=== PATIENT | female | born 1955 | race Caucasian/White ===

== ENCOUNTER 2016-06-21 10:25 | Outpatient (CLI) | payer MEDICAID | END 2016-06-21 10:26 | disposition home or self-care (01) | DX: I25.10 Atherosclerotic heart disease of native coronary artery without angina pectoris (principal); I10 Essential (primary) hypertension ==

== ENCOUNTER 2017-06-14 09:26 | Outpatient (CLI) | payer OTHER ==
[2017-06-14 18:31] LABS: BILIRUBIN,URINE NEGATIVE (NEGATIVE); GLUCOSE, URINE (UA) NEGATIVE (NEGATIVE); KETONES,URINE (UA) NEGATIVE (NEGATIVE); LEUKOCYTE ESTERASE, URINE NEGATIVE (NEGATIVE); NITRITE,URINE NEGATIVE (NEGATIVE); OCCULT BLOOD,URINE NEGATIVE (NEGATIVE); PROTEIN,URINE NEGATIVE (NEGATIVE); UROBILINOGEN,URINE 0.2 (NORMAL) E.U./dL (NORMAL)
[2017-06-14 18:36] LABS: CLARITY,URINE HAZY (CLEAR)
[2017-06-14 18:38] LABS: BACTERIA,URINE Rare /HPF (None Seen); RBC,URINE None Seen /HPF (0-5); SQUAMOUS EPITHELIAL CELL,UR MOD Squamous (<= Few)
[2017-06-14 18:55] LABS: ALBUMIN 4.3 g/dL (3.2-5.5); ALBUMIN/GLOBULIN RATIO 1.3 (1.0-2.2); ALKALINE PHOSPHATASE 73 IU/L (42-121); ALT ALANINE AMINOTRANSFERASE 15 IU/L (10-60); AST ASPARTATE AMINOTRANSFERASE 20 IU/L (10-42); BUN - BLOOD UREA NITROGEN 17 mg/dL (6-20); CALCIUM 9.5 mg/dL (8.5-10.3); CARBON DIOXIDE - CO2 26 mmol/L (21-32); CHLORIDE 102 mmol/L (101-111); CHOL/HDL RATIO 5.7 (<4.4); CHOLESTEROL 227 mg/dL; CREATININE 0.7 mg/dL (0.4-1.0); GFR - MDRD 85 (>89); GLUCOSE 93 mg/dL (70-100); HDL CHOLESTEROL 40 mg/dL; LDL CHOLESTEROL,CALCULATED 145 mg/dL; LDL/HDL RATIO 3.6 (<4.4); SODIUM 136 mmol/L (135-145); TOTAL PROTEIN 7.6 g/dL (6.7-8.2); VLDL CHOLESTEROL 42 mg/dL
[2017-06-14 19:04] LABS: BASOPHILS # (AUTO) 0.1 10^3/uL (0.0-0.1); BASOPHILS % (AUTO) 1.2 %; EOSINOPHILS # (AUTO) 0.3 10^3/uL (0.0-0.7); EOSINOPHILS % (AUTO) 4.2 %; HGB - HEMOGLOBIN 14.4 g/dL (12.0-16.0); LYMPHOCYTES % (AUTO) 15.5 %; MEAN CORPUSCULAR HEMOGLOBIN 31.7 pg (27.0-31.0); MEAN CORPUSCULAR HGB CONC 33.1 g/dL (32.0-36.0); MEAN CORPUSCULAR VOLUME 95.9 fL (81.0-99.0); MEAN PLATELET VOLUME 8.7 fL (7.9-10.8); MONOCYTES # (AUTO) 0.4 10^3/uL (0.0-1.0); NEUTROPHILS # (AUTO) 4.7 10^3/uL (1.5-6.6); NEUTROPHILS % (AUTO) 73.1 %; PLT - PLATELET COUNT 333 10^3/uL (130-450); RED BLOOD COUNT 4.54 10^6/uL (4.20-5.40); WHITE BLOOD COUNT 6.5 x10^3/uL (4.8-10.8)
== END 2017-06-14 09:27 | disposition home or self-care (01) ==
LOC: LAB.F 09:26
PROVIDERS: ATTEND Nurse Practitioner Family
DX: I10 Essential (primary) hypertension (principal); E78.5 Hyperlipidemia, unspecified; R41.3 Other amnesia
CPT/HCPCS: 36415; 80053; 80061; 81001; 84443; 85025; 87086

== ENCOUNTER 2017-06-28 08:37 | Inpatient (IN) | payer OTHER ==
--- NOTE | 2017-06-28 09:01 | ED Physician Documentation ---
PD HPI DYSPNEA - Stated complaint Stated Complaint: CONGESTION,FEVER - Chief complaint Chief Complaint: General - History obtained from History obtained from: Patient, Friend - History of Present Illness Timing - onset: How many days ago (3 or 4 days.) Timing - details: Gradual onset Worsened by: Coughing Associated symptoms: Fever, Cough Similar symptoms before: Has not had sx before - Additional information Additional information: The patient is a 62-year-old female who presents with dyspnea that has been progressing over the past 3 or 4 days. She reports congestion and has productive cough. She had a fever today. She reports few episodes of diarrhea over the past 2 days. She denies abdominal pain, nausea, or vomiting. She denies chest pain, headache, or dysuria. She denies history of similar symptoms in the past. Past medical history is significant for cardiovascular disease, and thinks she may have undergone coronary stent placement, but is uncertain. She has history of cerebrovascular dementia. She has no primary physician. She has a long history of cigarette smoking. Review of Systems Constitutional: reports: Fever, Fatigue Nose: reports: Congestion Throat: denies: Sore throat Cardiac: denies: Chest pain / pressure Respiratory: reports: Dyspnea, Cough GI: reports: Diarrhea. denies: Abdominal Pain, Nausea, Vomiting : denies: Dysuria Skin: denies: Rash Musculoskeletal: denies: Back pain, Extremity pain, Extremity swelling Neurologic: reports: Generalized weakness. denies: Focal weakness, Numbness, Headache PD PAST MEDICAL HISTORY - Past Medical History Cardiovascular: Coronary artery disease, Peripheral Vascular Disease Respiratory: COPD Neuro: Dementia Endocrine/Autoimmune: None - Present Medications Home Medications: Ambulatory Orders Medication Instructions Recorded Confirmed Aspirin [Aspirin EC] 81 mg PO DAILY 06/28/17 06/28/17 Atorvastatin Calcium [Lipitor] 80 mg PO QPM 06/28/17 06/28/17 Clopidogrel [Plavix] 75 mg PO DAILY 06/28/17 06/28/17 Lisinopril/Hydrochlorothiazide 1 each PO DAILY 06/28/17 06/28/17 [Lisinopril-Hctz 20-12.5 mg Tab] - Allergies Allergies/Adverse Reactions: Allergies Allergy/AdvReac Type Severity Reaction Status Date / Time No Known Drug Allergies Allergy Verified 06/28/17 08:48 - Social History Does the pt smoke?: Yes Smoking Status: Current every day smoker PD ED PE NORMAL - Vitals Vital signs reviewed: Yes (Tachycardic and tachypneic.) - General General: Alert and oriented X 3, Other (Frail appearing with coarse sounding cough, and appears acutely ill with dusky discoloration.) - HEENT HEENT: Atraumatic, PERRL, EOMI, Moist mucous membranes, Pharynx benign - Neck Neck: Supple, no meningeal sign, No adenopathy, No JVD - Cardiac Cardiac: No murmur, Other (Rapid rate, regular rhythm.) - Respiratory Respiratory: Other (Coarse breath sounds bilaterally, more on the right than the left.) - Abdomen Abdomen: Soft, Non tender - Back Back: No CVA TTP - Derm Derm: No rash - Extremities Extremities: No edema, No calf tenderness / cord, Other (Dusky appearing distal extremities.) - Neuro Neuro: Alert and oriented X 3, No motor deficit, Other (Drowsy, but alert and oriented, consistent with fatigue.) Eye Opening: Spontaneous Motor: Obeys Commands Verbal: Oriented GCS Score: 15 Results - Vitals Vitals: Vital Signs - 24 hr 06/28/17 06/28/17 06/28/17 08:44 09:53 10:10 Temperature 36.7 C Heart Rate 118 H 114 H 112 H Respiratory 30 H 34 H 31 H Rate Blood Pressure 131/86 H 143/111 H 84/62 L O2 Saturation 100 91 L 89 L 06/28/17 06/28/17 10:20 10:47 Temperature Heart Rate 109 H 109 H Respiratory 108 H 28 H Rate Blood Pressure 84/62 L 93/64 O2 Saturation 88 L 90 L Oxygen O2 Source high flow Oxygen Flow Rate 6 - EKG (time done) 09:23 Rate: Rate (enter#) (114) Rhythm: Sinus tachycardia Stites: LAD Intervals: RBBB, LBBB QRS: LVH Ischemia: Q waves (in inferior leads II and aVF.) Other comments: Other comments (and flattening in I, aVL, and V2.) Compare to prior EKG: Old EKG unavailable Computer interpretation: Agree with computer - Labs Labs: Laboratory Tests 06/28/17 06/28/17 06/28/17 09:10 09:40 09:47 WBC RBC Hgb Hct MCV MCH MCHC RDW Plt Count MPV Neut # Lymph # Tillman # Eos # Baso # Absolute Nucleated RBC Nucleated RBC % Manual Slide Review Platelet Estimate RBC Morph Micro Appear Bld Gas Analysis Time 0952 Sample Site RIGHT FEMORAL ABG pH 7.25 L ABG pCO2 30 L ABG pO2 42 L* ABG HCO3 12.9 L ABG Total CO2 13.8 L ABG O2 Saturation 73 L* ABG Oximetry Spot Check 75 ABG Base Excess -12.9 L Tyler Test NOT APPLICABLE VBG pH 7.248 L VBG pCO2 30.2 L VBG pO2 41.5 VBG HCO3 12.9 L VBG Total CO2 13.8 L VBG O2 Saturation 72.8 VBG Base Excess -12.9 L O2 Delivery Device NASAL CANNULA O2 Liters/Min 3.50 Sodium Potassium Chloride Carbon Dioxide Anion Gap BUN Creatinine Estimated GFR (MDRD) Glucose Lactic Acid Calcium Total Bilirubin AST ALT Alkaline Phosphatase Troponin I B-Natriuretic Peptide Total Protein Albumin Globulin Albumin/Globulin Ratio Lipase Urine Color DARK YELLOW Urine Clarity CLEAR Urine pH 6.0 Ur Specific Supply >=1.030 H Urine Protein 30 H Urine Glucose (UA) NEGATIVE Urine Ketones TRACE Urine Occult Blood NEGATIVE Urine Nitrite NEGATIVE Urine Bilirubin NEGATIVE Urine Urobilinogen 0.2 (NORMAL) Ur Leukocyte Esterase NEGATIVE Urine RBC 0-5 Urine WBC 0-3 Ur Squamous Epith Cells RARE Squamous Urine Bacteria None Seen Urine Casts 0-2 Hyaline Casts Urine Mucus Marked Strands Ur Microscopic Review INDICATED Urine Culture Comments NOT INDICATED Urine Opiates Screen NEGATIVE Ur Oxycodone Screen NEGATIVE Urine Methadone Screen NEGATIVE Ur Propoxyphene Screen NEGATIVE Ur Barbiturates Screen NEGATIVE Ur Tricyclics Screen NEGATIVE Ur Phencyclidine Scrn NEGATIVE Ur Amphetamine Screen NEGATIVE U Methamphetamines Scrn NEGATIVE U Benzodiazepines Scrn NEGATIVE Urine Cocaine Screen NEGATIVE U Cannabinoids Screen NEGATIVE 06/28/17 06/28/17 06/28/17 09:51 09:51 09:51 WBC 17.1 H RBC 4.46 Hgb 14.0 Hct 42.5 MCV 95.3 MCH 31.5 H MCHC 33.0 RDW 13.1 Plt Count 188 MPV 9.0 Neut # 15.3 H Lymph # 0.4 L Tillman # 1.4 H Eos # 0.0 Baso # 0.0 Absolute Nucleated RBC 0.02 Nucleated RBC % 0.1 Manual Slide Review Indicated Platelet Estimate NORMAL (130-450,000) RBC Morph Micro Appear 1+ POLYCHROMASIA Bld Gas Analysis Time Sample Site ABG pH ABG pCO2 ABG pO2 ABG HCO3 ABG Total CO2 ABG O2 Saturation ABG Oximetry Spot Check ABG Base Excess Tyler Test VBG pH VBG pCO2 VBG pO2 VBG HCO3 VBG Total CO2 VBG O2 Saturation VBG Base Excess O2 Delivery Device O2 Liters/Min Sodium 130 L Potassium 3.7 Chloride 99 L Carbon Dioxide 12 L* Anion Gap 19.0 H BUN 35 H Creatinine 1.5 H Estimated GFR (MDRD) 35 L Glucose 162 H Lactic Acid Calcium 7.8 L Total Bilirubin 0.8 AST 368 H ALT 170 H Alkaline Phosphatase 104 Troponin I 1.02 H* B-Natriuretic Peptide Total Protein 6.2 L Albumin 2.7 L Globulin 3.5 Albumin/Globulin Ratio 0.8 L Lipase < 10 L Urine Color Urine Clarity Urine pH Ur Specific Supply Urine Protein Urine Glucose (UA) Urine Ketones Urine Occult Blood Urine Nitrite Urine Bilirubin Urine Urobilinogen Ur Leukocyte Esterase Urine RBC Urine WBC Ur Squamous Epith Cells Urine Bacteria Urine Casts Urine Mucus Ur Microscopic Review Urine Culture Comments Urine Opiates Screen Ur Oxycodone Screen Urine Methadone Screen Ur Propoxyphene Screen Ur Barbiturates Screen Ur Tricyclics Screen Ur Phencyclidine Scrn Ur Amphetamine Screen U Methamphetamines Scrn U Benzodiazepines Scrn Urine Cocaine Screen U Cannabinoids Screen 06/28/17 06/28/17 09:51 09:51 WBC RBC Hgb Hct MCV MCH MCHC RDW Plt Count MPV Neut # Lymph # Tillman # Eos # Baso # Absolute Nucleated RBC Nucleated RBC % Manual Slide Review Platelet Estimate RBC Morph Micro Appear Bld Gas Analysis Time Sample Site ABG pH ABG pCO2 ABG pO2 ABG HCO3 ABG Total CO2 ABG O2 Saturation ABG Oximetry Spot Check ABG Base Excess Tyler Test VBG pH VBG pCO2 VBG pO2 VBG HCO3 VBG Total CO2 VBG O2 Saturation VBG Base Excess O2 Delivery Device O2 Liters/Min Sodium Potassium Chloride Carbon Dioxide Anion Gap BUN Creatinine Estimated GFR (MDRD) Glucose Lactic Acid 7.4 H* Calcium Total Bilirubin AST ALT Alkaline Phosphatase Troponin I B-Natriuretic Peptide 558 H Total Protein Albumin Globulin Albumin/Globulin Ratio Lipase Urine Color Urine Clarity Urine pH Ur Specific Supply Urine Protein Urine Glucose (UA) Urine Ketones Urine Occult Blood Urine Nitrite Urine Bilirubin Urine Urobilinogen Ur Leukocyte Esterase Urine RBC Urine WBC Ur Squamous Epith Cells Urine Bacteria Urine Casts Urine Mucus Ur Microscopic Review Urine Culture Comments Urine Opiates Screen Ur Oxycodone Screen Urine Methadone Screen Ur Propoxyphene Screen Ur Barbiturates Screen Ur Tricyclics Screen Ur Phencyclidine Scrn Ur Amphetamine Screen U Methamphetamines Scrn U Benzodiazepines Scrn Urine Cocaine Screen U Cannabinoids Screen - Rads (name of study) 1-view CXR Radiology: Prelim report reviewed, EMP read contemporaneously, See rad report ( Extensive bilateral lung opacities are worrisome for congestive heart failure and potential pneumonia.) PD MEDICAL DECISION MAKING - ED course Complexity details: reviewed results, re-evaluated patient, considered differential, d/w patient, d/w family, d/w forestry consultant ED course: The patient's presentation is most consistent with bilateral pneumonia with sepsis. She presents with respiratory failure with combined metabolic and respiratory acidosis, with pH of 7.248 on venous blood gas. Initial pulse oximetry is 79% on room air. It improves to 93% on 40% oxygen by high flow nasal cannula. She was not able to tolerate facemask or BiPAP. Lactate level is elevated at 7.4, consistent with sepsis. Blood cultures 2 were drawn and are pending. Safety Lead and emergency nurses were unable to draw blood initially, so labs were drawn by myself from the right femoral vein. Further laboratory abnormalities revealed a low sodium of 130, low serum bicarb at 12, elevated BUN and creatinine at 35 and 1.5, elevated troponin of 1.02, and elevated BNP of 558. Further treatment in the emergency department included administration of ceftriaxone 1 g IV, and azithromycin 500 mg IV, after blood cultures were drawn. Normal saline 1 L was administered IV. Townsend catheter was inserted, and adequate urine output was observed. I discussed her condition with Dr. Morales who evaluated her in the emergency department and initially admitted her to the ICU, but promptly transferred her to an acute care facility. - Critical Care Time(min): 60 Time Includes: Direct patient care, Reassess patient, Document care, Coordinate care Data interpretation: Labs, Pulse ox, ABG, CXR Procedures included in critical care time: Blood draw Procedures excluded from critical care time: EKG Departure - Departure Disposition: 66 [facility] DC/Xfer Clinical Impression: Metabolic acidosis with respiratory acidosis, Hyponatremia, Non-ST elevation SC (NSTEMI) Respiratory failure Qualifiers: Chronicity: acute Respiratory failure complication: hypoxia and hypercapnia Qualified Code(s): J96.01 - Acute respiratory failure with hypoxia Pneumonia Qualifiers: Pneumonia type: due to unspecified organism Laterality: bilateral Congestive heart failure (CHF) Qualifiers: Congestive heart failure chronicity: acute Sepsis Qualifiers: Sepsis type: sepsis due to unspecified organism Qualified Code(s): A41.9 - Sepsis, unspecified organism Condition: Critical Discharge Date/Time: 06/28/17 12:00
[2017-06-28] MEDS ORDERED: SODIUM CHLORIDE 0.9% 1,000 ML IV ONE (09:17)
[2017-06-28 09:22] LABS: MUDS CUTOFF CONCENTRATIONS CUTOFF CONC BELOW:
[2017-06-28 09:26] LABS: GLUCOSE, URINE (UA) NEGATIVE (NEGATIVE); KETONES,URINE (UA) TRACE mg/dL (NEGATIVE); LEUKOCYTE ESTERASE, URINE NEGATIVE (NEGATIVE); NITRITE,URINE NEGATIVE (NEGATIVE); OCCULT BLOOD,URINE NEGATIVE (NEGATIVE); PROTEIN,URINE 30 mg/dL (NEGATIVE); UROBILINOGEN,URINE 0.2 (NORMAL) E.U./dL (NORMAL)
[2017-06-28 09:31] LABS: BILIRUBIN,URINE NEGATIVE (NEGATIVE); CLARITY,URINE CLEAR (CLEAR); ICTOTEST,URINE NEGATIVE
[2017-06-28 09:34] LABS: AMPHETAMINE SCREEN,URINE NEGATIVE (NEGATIVE); BENZODIAZEPINES SCREEN, URINE NEGATIVE (NEGATIVE); COCAINE SCREEN URINE NEGATIVE (NEGATIVE); METHADONE SCREEN, URINE NEGATIVE (NEGATIVE); METHAMPHETAMINES SCREEN, URINE NEGATIVE (NEGATIVE); OPIATE SCREEN, URINE NEGATIVE (NEGATIVE); OXYCODONE SCREEN, URINE NEGATIVE (NEGATIVE); PROPOXYPHENE SCREEN, URINE NEGATIVE (NEGATIVE); TRICYCLIC ANTIDEPRESSANT,URINE NEGATIVE (NEGATIVE)
[2017-06-28 09:37] LABS: BACTERIA,URINE None Seen /HPF (None Seen); MUCUS,URINE Marked Strands; RBC,URINE 0-5 /HPF (0-5); SQUAMOUS EPITHELIAL CELL,UR RARE Squamous (<= Few)
[2017-06-28 09:38] LABS: CASTS, URINE 0-2 Hyaline Casts /LPF
--- NOTE | 2017-06-28 09:56 | XRAY Report ---
EXAM: CHEST RADIOGRAPHY EXAM DATE: 06/28/2017 09:27 AM. CLINICAL HISTORY: Dyspnea. COMPARISON: 02/26/2009. TECHNIQUE: 1 view. FINDINGS: Lungs/Pleura: Extensive bilateral interstitial and alveolar opacities, relatively sparing right lung base. No pneumothorax. No pleural effusion. Mediastinum: Tortuous thoracic aorta. Other: None. IMPRESSION: 1. Extensive bilateral lung opacities are worrisome for congestive heart failure and potential pneumo kalani. [facility] Referring Provider Line: [phone] SITE ID: [id number]
[2017-06-28 10:07] LABS: BASOPHILS % (AUTO) 0.1 %; LYMPHOCYTES # (AUTO) 0.4 10^3/uL (1.5-3.5); LYMPHOCYTES % (AUTO) 2.6 %; MEAN CORPUSCULAR HEMOGLOBIN 31.5 pg (27.0-31.0); MEAN CORPUSCULAR VOLUME 95.3 fL (81.0-99.0); MONOCYTES # (AUTO) 1.4 10^3/uL (0.0-1.0); NEUTROPHILS # (AUTO) 15.3 10^3/uL (1.5-6.6); NEUTROPHILS % (AUTO) 89.3 %; PLT - PLATELET COUNT 188 10^3/uL (130-450); RED BLOOD COUNT 4.46 10^6/uL (4.20-5.40); RED CELL DISTRIBUTION WIDTH 13.1 % (12.0-15.0); WHITE BLOOD COUNT 17.1 x10^3/uL (4.8-10.8)
[2017-06-28 10:27] LABS: ALBUMIN 2.7 g/dL (3.2-5.5); ALBUMIN/GLOBULIN RATIO 0.8 (1.0-2.2); ALKALINE PHOSPHATASE 104 IU/L (42-121); ALT ALANINE AMINOTRANSFERASE 170 IU/L (10-60); AST ASPARTATE AMINOTRANSFERASE 368 IU/L (10-42); BILIRUBIN,TOTAL 0.8 mg/dL (0.2-1.0); BUN - BLOOD UREA NITROGEN 35 mg/dL (6-20); CALCIUM 7.8 mg/dL (8.5-10.3); CHLORIDE 99 mmol/L (101-111); CREATININE 1.5 mg/dL (0.4-1.0); GFR - MDRD 35 (>89); GLUCOSE 162 mg/dL (70-100); SODIUM 130 mmol/L (135-145); TOTAL PROTEIN 6.2 g/dL (6.7-8.2)
[2017-06-28 10:28] LABS: CARBON DIOXIDE - CO2 12 mmol/L (21-32); LIPASE < 10 U/L (22-51)
[2017-06-28 10:31] LABS: PLATELET ESTIMATE, MANUAL NORMAL (130-450,000) (NORMAL)
[2017-06-28] MEDS ORDERED: AZITHROMYCIN INJ 500 MG in SODIUM CHLORIDE 0.9% 250 ML IV STA ×2 (10:44→10:57)
[2017-06-28] MEDS ORDERED: cefTRIAXone 1 GM in SODIUM CHLORIDE 0.9% MINIBAG 100 ML IV STA ×2 (10:44→10:57)
[2017-06-28] MEDS ORDERED: oxyCODONE 5 MG TABLET PO PRN (11:05)
[2017-06-28] MEDS ORDERED: SODIUM CHLORIDE FLUSH 0.9% 10 ML SYRINGE IVP PRN (11:05)
[2017-06-28] MEDS ORDERED: TEMAZEPAM 15 MG CAPSULE PO PRN (11:05)
[2017-06-28 11:09] LABS: ABG BASE EXCESS -12.9 mmol/L (-2.0-3.0); ABG HCO3 12.9 mmol/L (22.0-26.0); ABG PCO2 30 mmHg (34-45); ABG PH 7.25 (7.35-7.45); ABG TCO2 13.8 MMOL/L (21.0-29.0)
[2017-06-28 11:11] LABS: ABG OXYGEN SATURATION 73 % (94-98); ABG PO2 42 mmHg (80-100)
[2017-06-28 11:47] LABS: VBG BASE EXCESS -12.9 mmol/L (-2 - +2); VBG PCO2 30.2 mmHg (41-51); VBG PH 7.248 (7.31-7.41); VBG PO2 41.5 mmHg (25-47); VBG TOTAL CO2 13.8 mmol/L (24-29)
--- NOTE | 2017-06-28 11:59 | HISTORY & PHYSICAL EXAMINATION ---
History - Past Medical History Cardiovascular: reports: Coronary artery disease, Peripheral Vascular Disease Respiratory: reports: COPD Neuro: reports: Dementia Endocrine/Autoimmune: reports: None - Past Surgical History Cardiovascular: reports: Coronary stent Meds/Allgy - Home Medications Home Medications: Ambulatory Orders Medication Instructions Recorded Confirmed Aspirin [Aspirin EC] 81 mg PO DAILY 06/28/17 06/28/17 Atorvastatin Calcium [Lipitor] 80 mg PO QPM 06/28/17 06/28/17 Clopidogrel [Plavix] 75 mg PO DAILY 06/28/17 06/28/17 Lisinopril/Hydrochlorothiazide 1 each PO DAILY 06/28/17 06/28/17 [Lisinopril-Hctz 20-12.5 mg Tab] - Allergies Allergies/Adverse Reactions: Allergies Allergy/AdvReac Type Severity Reaction Status Date / Time No Known Drug Allergies Allergy Verified 06/28/17 08:48 Exam - Vital Signs Vital Signs: Vital Signs x48h Pulse Resp Pulse Ox 06/28/17 11:27 110 H 27 H 93 Conclusion/Plan - Lab Results Fish Bones: 06/28/17 09:51 06/28/17 09:51
[2017-06-28] MEDS ORDERED: D5.45NS W/20 MEQ KCL 1,000 ML IV SCH (12:00)
[2017-06-28] MEDS ORDERED: HEPARIN 25000UNITS/500ML (D5W) 25,000 UNIT/500 ML BAG IV SCH (13:00)
[2017-06-28 13:47] LABS: HGB - HEMOGLOBIN 14.4 g/dL (12.0-16.0); MEAN CORPUSCULAR HEMOGLOBIN 31.5 pg (27.0-31.0); MEAN CORPUSCULAR HGB CONC 33.9 g/dL (32.0-36.0); MEAN CORPUSCULAR VOLUME 92.9 fL (81.0-99.0); RED BLOOD COUNT 4.57 10^6/uL (4.20-5.40); RED CELL DISTRIBUTION WIDTH 13.2 % (12.0-15.0); WHITE BLOOD COUNT 11.9 x10^3/uL (4.8-10.8)
[2017-06-28 13:52] VITALS: BP 85/55
[2017-06-28] MEDS ORDERED: SODIUM CHLORIDE FLUSH 0.9% 10 ML SYRINGE IVP SCH (14:00)
--- NOTE | 2017-06-28 18:43 | HISTORY & PHYSICAL EXAMINATION ---
Chief Complaint - Chief Complaint Chief Complaint: shortness of breath History of Present Illness - Admitted From Admitted From:: Home - History Obtained From History obtained from: Pt's boyfriend Exam Limitations: Pt has hx of vascular dementia, poor historian - History of Present Illness HPI Comment/Other: Ms. Laurel Jennings is a 62-year-old female with a history of vascular dementia who began having "cold" symptoms over the last 4 or 5 days. She has a history of tobaccoism with a pack-year history of 25 years. She and her boyfriend say she has no primary care physician.At the emergency room she was found to have bilateral pneumonia and subsequent testing found an NSTEMI. History - Past Medical History Cardiovascular: reports: Coronary artery disease, Peripheral Vascular Disease Respiratory: reports: COPD Neuro: reports: Dementia Endocrine/Autoimmune: reports: None GI: reports: None : reports: None HEENT: reports: Chronic vision loss Musculoskeletal: reports: None Derm: reports: None - Past Surgical History Cardiovascular: reports: Coronary stent - Family & Social History Family History: Mother: (Father of natural causes), Cancer, Father : , Brother: , Other family: Hyperlipidemia Family History Comment/Other: One brother in a fire and another brother was murdered. Living arrangement: At home Living Situation: With spouse/s.o. - Substance History Use: Uses substance without health or social issues: Alcohol Dependence: Experiences withdrawal or developed tolerances: Tobacco Tobacco Details: Cigarettes - POLST Patient has POLST: No POLST Status: Full Code Meds/Allgy - Home Medications Home Medications: Ambulatory Orders Medication Instructions Recorded Confirmed Aspirin [Aspirin EC] 81 mg PO DAILY 06/28/17 06/28/17 Atorvastatin Calcium [Lipitor] 80 mg PO QPM 06/28/17 06/28/17 Clopidogrel [Plavix] 75 mg PO DAILY 06/28/17 06/28/17 Lisinopril/Hydrochlorothiazide 1 each PO DAILY 06/28/17 06/28/17 [Lisinopril-Hctz 20-12.5 mg Tab] - Allergies Allergies/Adverse Reactions: Allergies Allergy/AdvReac Type Severity Reaction Status Date / Time No Known Drug Allergies Allergy Verified 06/28/17 08:48 Review of Systems - Constitutional Constitutional: reports: Fatigue, Weakness, Poor appetite, Other (Because of her vascular dementia the patient is very poor historian and unable to participate fully in a review of systems. Entrys here were selected by the boyfriend.) - Eyes Eyes: denies: Pain, Irritation, Vision loss, Dipolpia - Ears, Nose & Throat Ears, Nose & Throat: denies: Hearing loss, Hearing aids, Nasal discharge, Nosebleeds - Cardiovascular Cariovascular: reports: Decr. exercise tolerance. denies: Edema, Syncope - Respiratory Respiratory: reports: Cough, Sputum production. denies: Wheezing, Hemoptysis - Gastrointestinal Gastrointestinal: denies: Abdominal distention, Change in bowel habits, Rectal bleeding, Black stools, Bloody stools - Genitourinary Genitourinary: denies: Hematuria, Incontinence, Nocturia - Musculoskeletal Musculoskeletal: denies: Muscle pain, Back pain, Muscle aches, Stiffness - Integumentary Integumentary: denies: Rash, Pruritis, Dryness, Acne - Neurological Neurological: reports: General weakness. denies: Focal weakness, Headache, Dizziness - Psychiatric Psychiatric: denies: Depression, Anxiety, Suicidal - Endocrine Endocrine: denies: Polyuria, Polydypsia, Polyphagia - Hematologic/Lymphatic Hematologic/Lymphatic: denies: Anemia, Bruising, Lymphadenopathy - All Other Systems All Other Systems: reports: Reviewed and negative Exam - Vital Signs Reviewed Vital Signs: Yes Vital Signs: Vital Signs x48h Temp Pulse Pulse Resp BP BP BP 06/28/17 13:51 101 H 27 H 85/55 L 06/28/17 12:58 36.2 C L 106 H 128/103 H 06/28/17 12:04 36.0 C L 114 H 30 H 131/111 H 06/28/17 11:27 110 H 27 H 128/108 H Pulse Ox 06/28/17 13:51 97 06/28/17 12:58 97 06/28/17 12:04 93 06/28/17 11:27 93 - Physical Exam General Appearance: positive: No acute distress, Alert Eyes Bilateral: positive: Normal inspection, PERRL, EOMI ENT: positive: ENT inspection nml, Pharynx nml, No signs of dehydration Neck: positive: Nml inspection, Thyroid nml, No JVD, Trachea midline Respiratory: positive: Chest non-tender, No respiratory distress, Breath sounds nml, Rhonchi. negative: Wheezes, Rales Cardiovascular: positive: Regular rate & rhythm, No murmur, No gallop. negative : Tachycardia Peripheral Pulses: positive: 1+ Abdomen: positive: Non-tender, No organomegaly, Nml bowel sounds, No distention. negative: Tenderness Back: positive: Nml inspection. negative: CVA tenderness (R), CVA tenderness (L ) Skin: positive: Color nml, No rash, Warm, Dry. negative: Cyanosis Extremities: positive: Non-tender, Full ROM, Nml appearance Neurologic/Psychiatric: positive: CN's nml (2-12), Motor nml, Sensation nml, Mood/affect nml Conclusion/Plan - Problem List (1) AMI (acute myocardial infarction) Conclusion/Plan: Patient has an NSTEMI as evidenced by troponin I of 1.02. I have made arrangements to transfer the patient immediately to [facility] in [facility]. The patient has been accepted by Dr. Presley. Qualifiers: Myocardial infarction ST status: non-ST elevation myocardial infarction Qualified Code(s): I21.4 - Non-ST elevation (NSTEMI) myocardial infarction (2) Congestive heart failure (CHF) Conclusion/Plan: The patient has a BNP of 558. Additionally the patient has an acute myocardial infarction at this time as evidenced by troponin I of 1.02. An echocardiogram done today showed an ejection fraction of 18%. Qualifiers: Congestive heart failure chronicity: acute (3) Hyponatremia Conclusion/Plan: Sodium level is 130, we will correct this with IV fluids (4) Pneumonia Conclusion/Plan: We will start the patient empirically on ceftriaxone and azithromycin and will monitor closely. Qualifiers: Pneumonia type: due to unspecified organism Laterality: bilateral (5) Respiratory failure Conclusion/Plan: The patient is currently on high flow oxygen via nasal cannula. We will monitor her blood gasses and if necessary will intubate or place her on BiPAP. Qualifiers: Chronicity: acute Respiratory failure complication: hypoxia and hypercapnia Qualified Code(s): J96.01 - Acute respiratory failure with hypoxia ; J96.02 - Acute respiratory failure with hypercapnia; J96.02 - Acute respiratory failure with hypercapnia; J96.02 - Acute respiratory failure with hypercapnia - Lab Results Lab results reviewed: Yes Fish Bones: 06/28/17 13:38 06/28/17 09:51 - Diagnostic Imaging Results Diagnostic Imaging Results: positive: Final report reviewed Diagnostic Imaging Results Comments: EXAM: CHEST RADIOGRAPHY EXAM DATE: 06/28/2017 09:27 AM. CLINICAL HISTORY: Dyspnea. COMPARISON: 02/26/2009. TECHNIQUE: 1 view. FINDINGS: Lungs/Pleura: Extensive bilateral interstitial and alveolar opacities, relatively sparing right lung base. No pneumothorax. No pleural effusion. Mediastinum: Tortuous thoracic aorta. Other: None. IMPRESSION: 1. Extensive bilateral lung opacities are worrisome for congestive heart failure and potential pneumonia. - EKG Results EKG Interpreted Independently: Yes EKG Comparison: No prior EKG Core Measures - Anticipated LOS I expect patient to be DC'd or transferred within 96 hours.: Yes - DVT/VTE - Prophylaxis VTE/DVT Device ordered at admit?: Yes - AMI - Statin at Admit Aspirin Prescribed on Admit: Yes
--- NOTE | 2017-06-28 19:02 | Discharge Plan ---
Discharge Plan Disposition: 02 Transfer Acute Care Hosp Condition: Critical Diet: Cardiac Activity Restrictions: Activity as Tolerated Shower Restrictions: No Driving Restrictions: No Weight Bearing: Partial Weight No Smoking: If you smoke, Please STOP! Call for help. Follow-up with: Elizabeth Mckoy ARNP [Primary Care Provider] -
--- NOTE | 2017-06-28 19:06 | DISCHARGE SUMMARY ---
Discharge Summary Admit Date: 06/28/17 Discharge Date: 06/28/17 Discharging Provider: Yolanda Morales DO Primary Care Provider: None Code Status: Attempt Resuscitation Condition at Discharge: Critical Discharge Disposition: 02 Transfer Acute Care Hosp Discharge Facility Name: [facility] - DIAGNOSES Admission Diagnoses: NSTEMI CHF Bilateral pneumonia Respiratory failure COPD Hyponatremia Discharge Diagnoses with Status of Each Condition: NSTEMI- The patient is being transferred to [place] in [facility] for follow-up care including possibly a cardiac catheterization. She has been placed on a heparin drip. CHF- The patient is not currently in congestive heart failure however an echocardiogram today showed an ejection fraction of 18%. Bilateral pneumonia- Ceftriaxone and azithromycin IV antibiotics have been ordered and administered. Respiratory failure- The patient is on high flow oxygen via nasal cannula at this time and her oxygen saturation is approximately 93%. COPD- Continue supplemental oxygen and nebulizer treatments with bronchodilators as necessary. Hyponatremia- Will correct with fluids/fluid restriction. - HPI History of Present Illness: Ms. Laurel Jennings is a 62-year-old female with a history of vascular dementia who began having "cold" symptoms over the last 4 or 5 days. She has a history of tobaccoism with a pack-year history of 25 years. She and her boyfriend say she has no primary care physician.At the emergency room she was found to have bilateral pneumonia and subsequent testing found an NSTEMI. - HOSPITAL COURSE Hospital Course: Patient was admitted from the emergency room to the intensive care unit, and immediately afterwards was found to have a troponin I of 1.02. She was transferred to [place] in [facility] under the care of Dr. Presley and will be followed up by the forestry aid over there. - ALLERGIES Allergies/Adverse Reactions: Allergies Allergy/AdvReac Type Severity Reaction Status Date / Time No Known Drug Allergies Allergy Verified 06/28/17 08:48 - MEDICATIONS Home Medications: Ambulatory Orders Medication Instructions Recorded Confirmed Aspirin [Aspirin EC] 81 mg PO DAILY 06/28/17 06/28/17 Atorvastatin Calcium [Lipitor] 80 mg PO QPM 06/28/17 06/28/17 Clopidogrel [Plavix] 75 mg PO DAILY 06/28/17 06/28/17 Lisinopril/Hydrochlorothiazide 1 each PO DAILY 06/28/17 06/28/17 [Lisinopril-Hctz 20-12.5 mg Tab] - PHYSICAL EXAM AT DISCHARGE General Appearance: positive: Alert, Mild distress Eyes Bilateral: positive: Normal inspection, PERRL, EOMI ENT: positive: ENT inspection nml, Pharynx nml, No signs of dehydration Neck: positive: Nml inspection, Thyroid nml, No JVD, Trachea midline. negative : Thyromegaly Respiratory: positive: Chest non-tender, No respiratory distress, Breath sounds nml Cardiovascular: positive: Regular rate & rhythm, No murmur, No gallop Peripheral Pulses: positive: 1+ Abdomen: positive: Non-tender, No organomegaly, Nml bowel sounds, No distention Back: positive: Nml inspection. negative: CVA tenderness (R), CVA tenderness (L ) Skin: positive: Color nml, No rash, Warm, Dry. negative: Cyanosis Extremities: positive: Non-tender, Full ROM, Nml appearance Neurologic/Psychiatric: positive: CN's nml (2-12), Disoriented to place, Disoriented to time, Weakness. negative: Facial droop, Slurred/abnml speech - LABS Result Diagrams: 06/28/17 13:38 06/28/17 09:51
== END 2017-06-28 14:40 | disposition short-term general hospital (02) | DRG 280 ==
LOC: ED 08:37 → ICU 11:06
PROVIDERS: ADMIT Hospitalist; ATTEND Hospitalist
DX: I21.4 Non-ST elevation (NSTEMI) myocardial infarction (principal); J18.9 Pneumonia, unspecified organism; J96.01 Acute respiratory failure with hypoxia; J96.02 Acute respiratory failure with hypercapnia; J44.0 Chronic obstructive pulmonary disease with (acute) lower respiratory infection; E87.1 Hypo-osmolality and hyponatremia; E87.4 Mixed disorder of acid-base balance; I50.9 Heart failure, unspecified; F01.50 Vascular dementia, unspecified severity, without behavioral disturbance, psychotic disturbance, mood disturbance, and anxiety; I25.10 Atherosclerotic heart disease of native coronary artery without angina pectoris; I73.9 Peripheral vascular disease, unspecified; F17.210 Nicotine dependence, cigarettes, uncomplicated; Z79.82 Long term (current) use of aspirin; Z79.02 Long term (current) use of antithrombotics/antiplatelets; Z95.5 Presence of coronary angioplasty implant and graft
CPT/HCPCS: 36415; 36600; 51702; 71045; 80053; 80306; 81001; 81003; 82270; 82803; 83605; 83690; 83880; 84484; 85025; 85520; 87040; 87086; 87150; 93005; 93306; 96361; 96365; 96367; 99284; 99285; 99291

== ENCOUNTER 2017-06-28 14:42 | Outpatient (CLI) | payer OTHER | END 2017-06-28 14:43 | disposition short-term general hospital (02) | LOC: EMS 14:42 | PROVIDERS: ATTEND Surgery | DX: J18.9 Pneumonia, unspecified organism (principal); R79.89 Other specified abnormal findings of blood chemistry | CPT/HCPCS: A0170; A0425; A0426 ==

== ENCOUNTER 2018-06-23 15:12 | Outpatient (CLI) | payer OTHER | END 2018-06-23 15:13 | disposition home or self-care (01) | LOC: DI 15:12 | PROVIDERS: ATTEND Nurse Practitioner Family | DX: Z53.9 Procedure and treatment not carried out, unspecified reason (principal) ==

== ENCOUNTER 2019-04-16 08:00 | Outpatient (CLI) | payer MEDICARE, OTHER | END 2019-04-16 23:59 | disposition home or self-care (01) | LOC: LAB.R 08:00 | PROVIDERS: ATTEND Registered Nurse | DX: R30.0 Dysuria (principal) | CPT/HCPCS: 87086; 87181 ==

== ENCOUNTER 2020-08-17 18:16 | Emergency (ER) | payer MEDICARE, OTHER ==
[2020-08-17] MEDS ORDERED: BUFFERED LIDOCAINE 10 ML SYRINGE SUBQ STA (19:22)
[2020-08-17] MEDS ORDERED: KETAMINE 500 MG/10 ML VIAL IM STA (19:59)
--- NOTE | 2020-08-17 20:02 | ED Physician Documentation ---
PD HPI HEAD INJURY - Stated complaint Stated Complaint: GLF - Chief complaint Chief Complaint: Trauma Hd/Nk - History obtained from History obtained from: Family - History of Present Illness Mechanism of head injury: Fell Where head injury occurred: Home Timing - onset: Today Location of injury: Right, Back Quality of pain: Pain Associated symptoms: No: LOC, AMS, Nausea / vomiting, Neck pain Symptoms improve with: Rest Symptoms worsen with: Palpation Contributing factors: No: Anticoagulated Similar symptoms before: Has not had sx before Recently seen: Not recently seen - Additional information Additional information: 65-year-old female with advanced dementia has had a fall at home and she has a laceration to the back of her scalp. She is brought in by ambulance and is uncooperative with exam or evaluation. According to the patient's this is normal for the patient and she can be very difficult to control. Review of Systems Unable to obtain: Dementia, Other (Per the patient's she has not been specifically ill.) PD PAST MEDICAL HISTORY - Past Medical History Past Medical History: Yes Cardiovascular: Coronary artery disease, Peripheral Vascular Disease Respiratory: COPD Neuro: Alzhiemer's, Dementia Endocrine/Autoimmune: None GI: None : None HEENT: Chronic vision loss Musculoskeletal: None Derm: None - Past Surgical History Past Surgical History: Yes Cardiovascular: Coronary stent - Present Medications Home Medications: Ambulatory Orders Medication Instructions Recorded Confirmed Aspirin [Aspirin EC] 81 mg PO DAILY 06/28/17 08/17/20 Atorvastatin Calcium [Lipitor] 80 mg PO QPM 06/28/17 08/17/20 Lisinopril/Hydrochlorothiazide 1 each PO DAILY 06/28/17 08/17/20 [Lisinopril-Hctz 20-12.5 mg Tab] Metoprolol Succinate [Toprol Xl] 25 mg PO BID 08/17/20 08/17/20 - Allergies Allergies/Adverse Reactions: Allergies Allergy/AdvReac Type Severity Reaction Status Date / Time No Known Drug Allergies Allergy Verified 06/28/17 08:48 - Social History Does the pt smoke?: Yes Smoking Status: Current every day smoker - POLST Patient has POLST: No POLST Status: Full Code PD ED PE NORMAL - Vitals Vital signs reviewed: Yes - General General: Well developed/nourished, Other (65-year-old female with a vacant stare is aggressive when approached and does not allow specific examination of the laceration to her scalp.) - HEENT HEENT: PERRL, EOMI, Other (Is a 4 cm laceration to the right occiput. This does not involve deeper structures and the wound is clean.) - Neck Neck: Supple, no meningeal sign, No bony TTP - Cardiac Cardiac: RRR, No murmur - Respiratory Respiratory: No respiratory distress, Clear bilaterally - Abdomen Abdomen: Soft, Non tender - Back Back: No CVA TTP, No spinal TTP - Derm Derm: Normal color, Warm and dry, No rash - Extremities Extremities: No deformity, No edema - Neuro Neuro: onion tier 2-12 intact, No motor deficit, No sensory deficit Eye Opening: Spontaneous Motor: Obeys Commands Verbal: Confused GCS Score: 14 - Psych Psych: Normal mood, Normal affect Results - Vitals Vitals: Vital Signs - 24 hr 08/17/20 08/17/20 08/17/20 18:27 20:35 20:46 Temperature 36.8 C Heart Rate 87 93 Respiratory 16 14 Rate Blood Pressure 168/90 H O2 Saturation 94 96 08/17/20 08/17/20 08/17/20 20:50 21:06 21:38 Temperature 36.8 C 36.8 C 36.8 C Heart Rate 90 78 81 Respiratory 14 15 14 Rate Blood Pressure 162/88 H 141/56 H 114/62 O2 Saturation 95 94 94 08/17/20 22:21 Temperature 36.8 C Heart Rate 84 Respiratory 14 Rate Blood Pressure 115/66 O2 Saturation 94 Oxygen O2 Source Room air Procedures - Laceration (location) Right occipital scalp Wound type: Linear, Into subcut fat, Clean Neurovascular status: Sensory intact, Motor intact, Vascular intact Anesthesia: Lidocaine 1%, With bicarb Wound preparation: Hibiclens, Irrigated copiously NS, Wound explored, To the base Skin layer closure: Bulmaro Other: Patient tolerated well, No complications, Neurovascular intact - Procedural sedation Sedation prep: Informed consent, Time out completed, Last meal, PE performed, ASA 2 - mild disease Sedation medications: ketamine Patient status during sedation: Unresponsive, Vitals remained stable, Maintained airway, Recovered uneventfully Sedation recovery: Recovered uneventfully, Back to baseline PD MEDICAL DECISION MAKING - ED course Complexity details: considered differential, d/w family ED course: 65-year-old female with occipital scalp laceration is unable to cooperate for examination or repair and she does not otherwise appear ill from this or injured from this and we have administered 200 mg of ketamine IM for conscious sedation for repair of this laceration. With this we were able to clean the laceration thoroughly examined the patient and repair the laceration. Departure - Departure Disposition: 01 Home, Self Care Clinical Impression: Scalp laceration Qualifiers: Encounter type: initial encounter Qualified Code(s): S01.01XA - Laceration without foreign body of scalp, initial encounter Condition: Stable Instructions: ED Laceration Scalp Stitch Or Stap Follow-Up: Xiomara Frey ARNP [Primary Care Provider] - Comments: Bulmaro will need to be removed in 7-10 days Discharge Date/Time: 08/17/20 22:22
[2020-08-17 22:22] VITALS: BP 115/66
== END 2020-08-17 22:22 | disposition home or self-care (01) ==
LOC: ED 18:16
DX: S01.01XA Laceration without foreign body of scalp, initial encounter (principal); W19.XXXA Unspecified fall, initial encounter; Y92.009 Unspecified place in unspecified non-institutional (private) residence as the place of occurrence of the external cause; F03.90 Unspecified dementia, unspecified severity, without behavioral disturbance, psychotic disturbance, mood disturbance, and anxiety; F17.200 Nicotine dependence, unspecified, uncomplicated
CPT/HCPCS: 12002; 99152; 99153; 99281; 99283

== ENCOUNTER 2020-08-29 17:17 | Emergency (ER) | payer MEDICARE ==
--- NOTE | 2020-08-29 18:12 | ED Physician Documentation ---
PD HPI WOUND RECHECK - Stated complaint Stated Complaint: STAPLE REMOVAL - Chief complaint Chief Complaint: Wound - Histroy obtained from History obtained from: Patient, Family - History of Present Illness Location: Scalp Timing - onset: How many days ago (10) Pain level max: 0 Pain level now: 0 Associated symptoms: No: Fever, Redness, Swelling, Drainage, Pain - Additional information Additional information: Patient is here for staple removal Review of Systems Unable to obtain: Dementia PD PAST MEDICAL HISTORY - Past Medical History Past Medical History: Yes Cardiovascular: Coronary artery disease, Peripheral Vascular Disease Respiratory: COPD Neuro: Alzhiemer's, Dementia Endocrine/Autoimmune: None GI: None : None HEENT: Chronic vision loss Musculoskeletal: None Derm: None - Past Surgical History Past Surgical History: Yes Cardiovascular: Coronary stent - Present Medications Home Medications: Ambulatory Orders Medication Instructions Recorded Confirmed Aspirin [Aspirin EC] 81 mg PO DAILY 06/28/17 08/29/20 Atorvastatin Calcium [Lipitor] 80 mg PO QPM 06/28/17 08/29/20 Lisinopril/Hydrochlorothiazide 1 each PO DAILY 06/28/17 08/29/20 [Lisinopril-Hctz 20-12.5 mg Tab] Metoprolol Succinate [Toprol Xl] 25 mg PO BID 08/17/20 08/29/20 - Allergies Allergies/Adverse Reactions: Allergies Allergy/AdvReac Type Severity Reaction Status Date / Time No Known Drug Allergies Allergy Verified 06/28/17 08:48 - Social History Does the pt smoke?: Yes Smoking Status: Current every day smoker Does the pt drink ETOH?: No Does the pt have substance abuse?: No - Immunizations Immunizations are current?: Yes - POLST Patient has POLST: No POLST Status: Full Code PD ED PE NORMAL - Vitals Vital signs reviewed: Yes - General General: No acute distress, Well developed/nourished - HEENT HEENT: Other (Laceration is clean, dry, intact. No signs of infection. Laceration is on the occiput. [address]) - Derm Derm: Warm and dry Results - Vitals Vitals: Vital Signs - 24 hr 08/29/20 17:25 Temperature 36.1 C L Heart Rate 66 Respiratory 18 Rate O2 Saturation 92 Oxygen O2 Source Room air Procedures - Suture/staple Removal (location) Occiput Suture/staple removal: # sadie (all), No complications PD MEDICAL DECISION MAKING - ED course Complexity details: considered differential, d/w patient ED course: 65-year-old female, sadie removed. Tolerated well. No signs of infection. This document was made in part using voice recognition software. While efforts are made to proofread this document, sound alike and grammatical errors may occur. Departure - Departure Disposition: 01 Home, Self Care Clinical Impression: Removal of staple Condition: Good Instructions: ED Stap Removal No Complication Follow-Up: your,doctor as needed. [Other] Comments: Follow-up with her doctor as needed for further care. All sadie were removed tonight. There is no sign of infection Discharge Date/Time: 08/29/20 18:20
== END 2020-08-29 18:20 | disposition home or self-care (01) ==
LOC: ED 17:17
DX: S01.01XD Laceration without foreign body of scalp, subsequent encounter (principal); X58.XXXD Exposure to other specified factors, subsequent encounter
CPT/HCPCS: 99281; 99282

== ENCOUNTER 2020-09-12 | Outpatient (CLI) | payer MEDICARE | END 2020-09-12 05:21 | disposition EMS.NT | DX: R55 Syncope and collapse (principal) ==

== ENCOUNTER 2020-09-12 09:02 | Emergency (ER) | payer MEDICARE ==
--- NOTE | 2020-09-12 10:05 | XRAY Report ---
PROCEDURE: Pelvis 1 View INDICATIONS: fall from standing TECHNIQUE: 1 view(s) of the pelvis acquired. COMPARISON: None. FINDINGS: Bones: No gross acute pelvic fractures or dislocations. Bilateral hip joint osteoarthritic changes are seen. No suspicious bony lesions. Soft tissues: Visualized bowel gas pattern is normal. No suspicious soft tissue calcifications. Ao rtoiliac stent is seen. IMPRESSION: No gross acute pelvic fracture or dislocation. Bilateral hip joint osteoarthritis. No sarahi dence of avascular necrosis. Reviewed by: Holland Vann MD on 09/12/2020 10:04 AM PDT Approved by: Holland Vann MD on 09/12/2020 10:04 AM PDT Station ID: [id number]
--- NOTE | 2020-09-12 10:11 | XRAY Report ---
PROCEDURE: Chest 1 View X-Ray INDICATIONS: fall from standing TECHNIQUE: One view of the chest was acquired. COMPARISON: None FINDINGS: Surgical changes and devices: None. Lungs and pleura: No pleural effusions or pneumothorax. Lungs are clear. Mediastinum: Mediastinal contours appear normal. Heart size is normal. Bones and chest wall: No suspicious bony lesions. Overlying soft tissues appear unremarkable. IMPRESSION: No acute cardiopulmonary pathology. Reviewed by: Holland Vann MD on 09/12/2020 10:10 AM PDT Approved by: Holland Vann MD on 09/12/2020 10:10 AM PDT Station ID: [id number]
--- NOTE | 2020-09-12 10:28 | CT Report ---
PROCEDURE: HEAD WO INDICATIONS: Head trauma, mod-severe TECHNIQUE: Noncontrast 4.5 mm thick angled axial sections acquired from the foramen magnum to the vertex. For r adiation dose reduction, the following was used: automated exposure control, adjustment of mA and/or kV according to patient size. COMPARISON: None. FINDINGS: Image quality: Patient motion artifact. CSF spaces: Basal cisterns are patent. No extra-axial fluid collections. Ventricles are prominent, greater than expected for patient age. Brain: No midline shift. No intracranial masses or hemorrhage. Dee-white matter interface is norm al. Diffuse volume loss with resultant ventriculomegaly, greater than expected for patient age. Mild small vessel ischemic change. Vertebral artery and intracranial internal carotid artery atherosclero tic calcifications. Skull and face: Calvarium and visualized facial bones are intact, without suspicious lesions. Sinuses: Visualized sinuses and mastoids are clear. IMPRESSION: 1. Diffuse volume loss, greater than expected for patient age. Small vessel ischemic change. 2. No evidence of acute stroke, hemorrhage, or mass. 3. No evidence of significant intracranial sequelae of acute trauma. Reviewed by: Maik Roger MD on 09/12/2020 10:27 AM PDT Approved by: Maik Roger MD on 09/12/2020 10:27 AM PDT Station ID: [id number]
--- NOTE | 2020-09-12 10:30 | CT Report ---
PROCEDURE: CERVICAL SPINE WO INDICATIONS: Neck trauma, midline tenderness TECHNIQUE: Noncontrast 3 mm thick sections acquired from the skull base to the T4 level. Sagittal and coronal r eformats were then constructed. For radiation dose reduction, the following was used: automated exp osure control, adjustment of mA and/or kV according to patient size. COMPARISON: None. FINDINGS: Image quality: Excellent. Bones: No fractures or dislocations. Visualized superior ribs are intact. Bilateral uncovertebral j oint hypertrophy with bony foraminal narrowing at C5-C6 and C6-C7. Soft tissues: Prevertebral soft tissues are normal in thickness. No paravertebral hematomas. No ap ical pneumothoraces. Dense bilateral carotid bifurcation calcifications. IMPRESSION: 1. No evidence of acute cervical fracture or dislocation. 2. Cervical spondylitic change. 3. ASCVD. Reviewed by: Maik Roger MD on 09/12/2020 10:29 AM PDT Approved by: Maik Roger MD on 09/12/2020 10:29 AM PDT Station ID: [id number]
[2020-09-12 12:04] VITALS: BP 158/84
[2020-09-12 12:23] LABS: BILIRUBIN,URINE NEGATIVE (NEGATIVE); GLUCOSE, URINE (UA) NEGATIVE (NEGATIVE); KETONES,URINE (UA) NEGATIVE (NEGATIVE); LEUKOCYTE ESTERASE, URINE NEGATIVE (NEGATIVE); NITRITE,URINE NEGATIVE (NEGATIVE); OCCULT BLOOD,URINE NEGATIVE (NEGATIVE); PROTEIN,URINE NEGATIVE (NEGATIVE); UROBILINOGEN,URINE 0.2 (NORMAL) E.U./dL (NORMAL)
[2020-09-12 12:24] LABS: CLARITY,URINE CLEAR (CLEAR)
[2020-09-12 12:33] LABS: RBC,URINE 0-5 /HPF (0-5); WBC,URINE 0-3 /HPF (0-5)
[2020-09-12 12:34] LABS: BACTERIA,URINE Rare /HPF (None Seen); SQUAMOUS EPITHELIAL CELL,UR NONE SEEN (<= Few)
--- NOTE | 2020-09-12 13:43 | ED Physician Documentation ---
History of Present Illness - Stated complaint Stated Complaint: HEAD INJ - Chief complaint Chief Complaint: Neuro - History obtained from History obtained from: Family (Significant other) - Additonal information Additional information: 65-year-old woman with history of advanced Alzheimer's dementia presents with head injury occurring at 5 AM this morning during which she fell backwards, hitting her head on fibroblast tub and possibly passing out for a few seconds. Her significant other witnessed the fall and states that she was behaving at baseline immediately after returning to consciousness. He does report that she has been complaining of abdominal pain in the lower abdomen lately and has been more agitated than usual over the past several weeks. He is concerned that she has a urinary tract infection. Denies fevers. Further history limited by patient dementia. Review of Systems Unable to obtain: Dementia PD PAST MEDICAL HISTORY - Past Medical History Cardiovascular: Coronary artery disease, Peripheral Vascular Disease Respiratory: COPD Neuro: Alzhiemer's, Dementia Endocrine/Autoimmune: None GI: None : None HEENT: Chronic vision loss Musculoskeletal: None Derm: None - Past Surgical History Past Surgical History: Yes Cardiovascular: Coronary stent - Present Medications Home Medications: Ambulatory Orders Medication Instructions Recorded Confirmed Aspirin [Aspirin EC] 81 mg PO DAILY 06/28/17 09/12/20 Atorvastatin Calcium [Lipitor] 80 mg PO QPM 06/28/17 09/12/20 Lisinopril/Hydrochlorothiazide 1 each PO DAILY 06/28/17 09/12/20 [Lisinopril-Hctz 20-12.5 mg Tab] Metoprolol Succinate [Toprol Xl] 25 mg PO BID 08/17/20 09/12/20 - Allergies Allergies/Adverse Reactions: Allergies Allergy/AdvReac Type Severity Reaction Status Date / Time No Known Drug Allergies Allergy Verified 09/12/20 09:17 - Social History Does the pt smoke?: No Smoking Status: Former smoker Does the pt drink ETOH?: No Does the pt have substance abuse?: No - Immunizations Immunizations are current?: Yes - POLST Patient has POLST: No POLST Status: Full Code PD ED PE NORMAL - Vitals Vital signs reviewed: Yes - General General: Other (Alert, thin appearing, able to state her name but otherwise un cooperative) - HEENT HEENT: Atraumatic, PERRL, EOMI, Pharynx benign - Neck Neck: Supple, no meningeal sign, No bony TTP - Cardiac Cardiac: RRR - Respiratory Respiratory: No respiratory distress, Clear bilaterally - Abdomen Abdomen: Non tender, Non distended, Other (pelvis stable) - Female Female : Deferred - Rectal Rectal: Deferred - Back Back: No spinal TTP - Derm Derm: Normal color, Warm and dry - Extremities Extremities: No deformity, Normal ROM s pain - Neuro Neuro: Other (AOX1. intermittently uncooperative/agitated but redirectable) - Psych Psych: Other (dementia/agitation) Results - Vitals Vitals: Vital Signs - 24 hr 09/12/20 09/12/20 09:13 12:04 Temperature 36.1 C L Heart Rate 87 94 Respiratory 18 16 Rate Blood Pressure 135/99 H 158/84 H O2 Saturation 96 Oxygen O2 Source Room air - Labs Labs: Laboratory Tests 09/12/20 12:10 Urine Color YELLOW Urine Clarity CLEAR Urine pH 8.0 H Ur Specific [place] 1.020 Urine Protein NEGATIVE Urine Glucose (UA) NEGATIVE Urine Ketones NEGATIVE Urine Occult Blood NEGATIVE Urine Nitrite NEGATIVE Urine Bilirubin NEGATIVE Urine Urobilinogen 0.2 (NORMAL) Ur Leukocyte Esterase NEGATIVE Urine RBC 0-5 Urine WBC 0-3 Ur Squamous Epith Cells NONE SEEN Urine Bacteria Rare Urine Culture Comments NOT INDICATED PD MEDICAL DECISION MAKING - ED course ED course: d/w significant other that her CT head, c spine, chest and pelvis xray were noncontributory. He voices undertsnading and states she is at baseline. Strict return precautions given. He will follow up with her primary doctor. Departure - Departure Disposition: 01 Home, Self Care Clinical Impression: Fall from standing, Head injury, Agitation Condition: Good Instructions: ED Head Injury Closed Comments: Laurel was seen in the emergency Department for head injury after a fall. Your head CT, cervical spine CT, chest x-ray and pelvic x-ray did not show any signs of trauma. Her urine shows no signs of infection. She should follow-up with her primary doctor at the [facility] this week. Return to the emergency department if she experiences any new or worsening symptoms or if you have other concerns. Discharge Date/Time: 09/12/20 14:04
--- OUTSIDE RECORDS SUMMARY | 2020-09-14 03:11 | EXTERNAL MEDICAL SUMMARY RPT | Continuity of Care Document ---
:1955 Demographics Phone Unavailable Preferred Language Unknown Marital Status Unknown [employer]ar[employer] Affiliation Unknown Race Unknown Ethnic Group Unknown Author Organization [place] Address [address] [id number] Phone Social History date description facility [id number]
== END 2020-09-12 14:04 | disposition home or self-care (01) ==
LOC: ED 09:02
DX: S09.90XA Unspecified injury of head, initial encounter (principal); W22.09XA Striking against other stationary object, initial encounter; G30.9 Alzheimer's disease, unspecified; F02.80 Dementia in other diseases classified elsewhere, unspecified severity, without behavioral disturbance, psychotic disturbance, mood disturbance, and anxiety; Z87.891 Personal history of nicotine dependence; R45.1 Restlessness and agitation
CPT/HCPCS: 81001; 87086; 99282; 99284

== ENCOUNTER 2021-03-13 05:44 | Outpatient (CLI) | payer MEDICARE | END 2021-03-13 05:45 | disposition EMS.NT | LOC: EMS 05:44 | DX: R55 Syncope and collapse (principal) ==

== ENCOUNTER 2024-02-28 17:18 | Outpatient (CLI) | payer MEDICARE | END 2024-02-28 23:59 | disposition critical access hospital (66) | LOC: EMS 17:18 | DX: R21 Rash and other nonspecific skin eruption (principal) | CPT/HCPCS: A0425; A0429 ==

== ENCOUNTER 2024-02-28 17:50 | Emergency (ER) | payer MEDICARE ==
[2024-02-28 18:16] VITALS: BP 156/108
--- NOTE | 2024-02-28 18:33 | ED Physician Documentation ---
History of Present Illness - Stated complaint Stated Complaint: RT LEG INFECTION - Chief complaint Chief Complaint: Ext Problem - Additonal information Additional information: 68-year-old female with complex past medical history including very advanced dementia, CHF, hypertension, coronary artery disease, peripheral vascular disease presents emergency department via EMS from urgent care. Urgent care provider said that he was worried because her blood pressure was 70s over 50s at urgent care she was afebrile and not tachycardic. She is unable to provide any information to history her daughter is at bedside he says that she noticed right lower extremity swelling the last couple days but is gotten more severe and she noticed some purulent drainage coming from patient's mother's right foot. Plan is to transition mother to hospice on Saturday but was hoping to just get on some antibiotics in the meantime. Urgent care doctor's main concern was possible sepsis although upon arrival to the emergency department patient does not meet any sepsis criteria blood pressure systolically is in the 150s no tachycardia and afebrile. PD PAST MEDICAL HISTORY - Past Medical History Cardiovascular: Congestive heart failure, Hypertension, High cholesterol, Coronary artery disease, Peripheral Vascular Disease, [place] Respiratory: COPD Neuro: Alzhiemer's, Dementia Endocrine/Autoimmune: None GI: Chronic constipation [employer]PER[employer] DIE CASTING: Ovarian cysts : None HEENT: Chronic vision loss Psych: Anxiety Musculoskeletal: None Derm: None Other Past Medical History: ETOH abuse - Past Surgical History Past Surgical History: Yes Cardiovascular: Coronary stent - Present Medications Home Medications: Ambulatory Orders Medication Instructions Recorded Confirmed Aspirin [Aspirin EC] 81 mg PO DAILY 06/28/17 02/28/24 Atorvastatin Calcium [Lipitor] 80 mg PO QPM 06/28/17 02/28/24 Metoprolol Succinate [Toprol Xl] 25 mg PO BID 08/17/20 02/28/24 Albuterol Sulf [Ventolin Hfa 1 - 2 puffs INH Q4HR PRN 02/28/24 02/28/24 Inhaler] Doxycycline [Vibramycin] 100 mg PO BID 7 Days #14 tablet 02/28/24 Lactose-Reduced Food [Ensure 8 oz PO TID 02/28/24 02/28/24 Complete] Lisinopril [Zestril] 2.5 mg PO DAILY 02/28/24 02/28/24 cephALEXin [Keflex] 500 mg PO Q6H 5 Days #28 cap 02/28/24 - Allergies Allergies/Adverse Reactions: Allergies Allergy/AdvReac Type Severity Reaction Status Date / Time No Known Drug Allergies Allergy Verified 02/28/24 18:13 - Social History Does the pt smoke?: No Smoking Status: Never smoker Does the pt drink ETOH?: No Does the pt have substance abuse?: No - Immunizations Immunizations are current?: Yes - POLST Patient has POLST: No POLST Status: Full Code PD ED PE NORMAL - Vitals Vital signs reviewed: Yes - General General: Well developed/nourished (Cachectic, yelling out, alert and oriented x 0.) - HEENT HEENT: Atraumatic, PERRL - Abdomen Abdomen: Normal bowel sounds, Soft, Non tender, No organomegaly - Derm Derm: Other (Right lower extremity erythema outlined by urgent care doctor. At the medial aspect of patient's right foot there is some scant purulent drainage with no fluctuation) - Extremities Extremities: Other (right lower extremity swelling. ) PD ED PE EXPANDED - Psych Psych: Withdrawn, Poor eye contact, Non verbal, Anxious, Other (frequently yelling out) Results - Vitals Vitals: Vital Signs - 24 hr 02/28/24 02/28/24 18:01 20:01 Temperature 36.3 C L 36.5 C Heart Rate 80 84 Respiratory 18 16 Rate Blood Pressure 156/108 H O2 Saturation 95 97 Oxygen O2 Source Room air - Labs Labs: Laboratory Tests 02/28/24 02/28/24 02/28/24 18:35 18:57 18:57 WBC 15.4 H RBC 3.93 L Hgb 11.5 L Hct 35.9 L MCV 91.3 MCH 29.3 MCHC 32.0 RDW 13.0 Plt Count 325 MPV 9.7 Neut # (Auto) 12.7 H Lymph # (Auto) 1.1 L Camp # (Auto) 0.9 Eos # (Auto) 0.5 Baso # (Auto) 0.1 Absolute Nucleated RBC 0.00 Nucleated RBC % 0.0 Sodium 142 Potassium 3.5 Chloride 105 Carbon Dioxide 27 Anion Gap 10.0 BUN 33 H Creatinine 1.0 Estimated GFR (MDRD) 55 L Glucose 96 Lactic Acid 1.1 Calcium 9.1 Magnesium 2.0 Total Bilirubin 0.8 AST 97 H ALT 84 H Alkaline Phosphatase 73 Total Protein 6.9 Albumin 3.6 Globulin 3.3 Albumin/Globulin Ratio 1.1 Lipase 131 H PD Medical Decision Making - ED course ED course: 68-year-old female originally presents emergency department for concerns of sepsis. Upon arrival to the emergency department multiple blood pressures have been taken and blood pressure was 150s over 100s. She remains afebrile throughout entire ER visit satting well on room air. There is a small amount of purulent drainage from patient's right foot this was sent to the lab for further evaluation as well as 2 sets of blood cultures. Patient was started on Keflex and doxycycline here in the emergency department. Labs are complete for further evaluation she does have leukocytosis, 15.4 mild anemia hemoglobin 11.5. AST and ALT are slightly elevated as well as lipase slightly elevated at 131. At this point in time I believe that patient is safe for discharge with starting the dual antibiotics and these prescriptions have been sent to patient's preferred pharmacy. She was given 1 dose of olanzapine here in the emergency department to help with her agitation and screaming out. I spoke with patient's power of securities attorney Marquise who confirms that patient is being transitioned to hospice on Saturday for her advanced dementia. Patient's daughter will drive her home who is very supportive of patient's mother and they feel comfortable with the plan at this point in time. Return precautions given all questions answered patient is safe for discharge at this time. Departure - Departure Disposition: 01 Home, Self Care Clinical Impression: Cellulitis and abscess of foot Instructions: Cellulitis Dc Prescriptions: cephALEXin [Keflex] 500 mg PO Q6H 5 Days #28 cap Doxycycline [Vibramycin] 100 mg PO BID 7 Days #14 tablet Comments: Thank you for trusting us with your mother's care. We have started her on an antibiotic called Keflex and doxycycline to help with the infection of her right lower extremity. We have also sent to the drainage to the lab and we will call you in a couple days if you need to change antibiotics. Please stop by the frontload driver on your way out to update emergency contact information so that you are on her call list. If she has been taking the antibiotics for a total of 48 hours and she has had no improvement of symptoms or she has any worsening symptoms please present back to the emergency department for reevaluation. Forms: PCP List Discharge Date/Time: 02/28/24 20:21
[2024-02-28 19:00] LABS: ALBUMIN 3.6 g/dL (3.2-5.5); ALBUMIN/GLOBULIN RATIO 1.1 (1.0-2.2); BILIRUBIN,TOTAL 0.8 mg/dL (0.2-1.0); CALCIUM 9.1 mg/dL (8.5-10.3); POTASSIUM 3.5 mmol/L (3.5-4.5); TOTAL PROTEIN 6.9 g/dL (6.4-8.9)
[2024-02-28 19:03] LABS: BASOPHILS # (AUTO) 0.1 10^3/uL (0.0-0.1); BASOPHILS % (AUTO) 0.3 %; EOSINOPHILS # (AUTO) 0.5 10^3/uL (0.0-0.7); EOSINOPHILS % (AUTO) 3.1 %; HCT - HEMATOCRIT 35.9 % (37.0-47.0); HGB - HEMOGLOBIN 11.5 g/dL (12.0-16.0); LYMPHOCYTES # (AUTO) 1.1 10^3/uL (1.5-3.5); LYMPHOCYTES % (AUTO) 7.4 %; MEAN CORPUSCULAR HEMOGLOBIN 29.3 pg (27.0-31.0); MEAN CORPUSCULAR VOLUME 91.3 fL (81.0-99.0); MEAN PLATELET VOLUME 9.7 fL (7.9-10.8); MONOCYTES # (AUTO) 0.9 10^3/uL (0.0-1.0); MONOCYTES % (AUTO) 5.5 %; NEUTROPHILS # (AUTO) 12.7 10^3/uL (1.5-6.6); NEUTROPHILS % (AUTO) 82.5 %; PLT - PLATELET COUNT 325 10^3/uL (130-450); RED BLOOD COUNT 3.93 10^6/uL (4.20-5.40); WHITE BLOOD COUNT 15.4 x10^3/uL (4.8-10.8)
[2024-02-28] MEDS: OLANZapine 10 MG VIAL IM STA (19:16)
[2024-02-28] MEDS: cephALEXin 250 MG CAPSULE PO STA (19:39)
[2024-02-28] MEDS: DOXYCYCLINE 100 MG TABLET PO STA (19:45)
[2024-02-28 20:08] VITALS: O2SAT 97
== END 2024-02-28 20:21 | disposition home or self-care (01) ==
LOC: EDUNIT# → ED 17:50
DX: L03.115 Cellulitis of right lower limb (principal); L02.611 Cutaneous abscess of right foot; I11.0 Hypertensive heart disease with heart failure; I50.9 Heart failure, unspecified; I25.10 Atherosclerotic heart disease of native coronary artery without angina pectoris; I73.9 Peripheral vascular disease, unspecified; I25.2 Old myocardial infarction; G30.9 Alzheimer's disease, unspecified; F02.80 Dementia in other diseases classified elsewhere, unspecified severity, without behavioral disturbance, psychotic disturbance, mood disturbance, and anxiety; J44.9 Chronic obstructive pulmonary disease, unspecified; Z79.82 Long term (current) use of aspirin; Z79.899 Other long term (current) drug therapy
CPT/HCPCS: 36415; 80053; 83605; 83690; 83735; 85025; 87040; 96372; 99284; A9270